=== PATIENT | male | born 1990 | race Caucasian/White ===

== ENCOUNTER 2017-02-27 00:20 | Emergency (ER) | payer OTHER ==
[~2017-02-27] VITALS: Ht 180.3 cm; Wt 88.0 kg
[2017-02-27 00:23] VITALS: BP 131/81; PULSE 111; RESP 16; TEMP 98.8; O2SAT 98
[2017-02-27] MEDS ORDERED: DICL75TA PO (00:35)
[2017-02-27] MEDS ORDERED: CEPH-460 PO (00:35)
[2017-02-27] MEDS ORDERED: CYCL1TAB29 PO (00:35)
[2017-02-27] MEDS ORDERED: CYCLOBENZAPRINE HCL 10 MG TAB PO ONE (00:45)
[2017-02-27] MEDS ORDERED: CEPHALEXIN MONOHYDRATE 500 MG CAP PO ONE (00:45)
[2017-02-27] MEDS ORDERED: NAPROXEN 500 MG TAB PO ONE (00:45)
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
== END 2017-02-27 01:42 | disposition home or self-care (01) ==
LOC: NEPK 00:20
DX: S80.812A Abrasion, left lower leg, initial encounter (principal); T14.8 Other injury of unspecified body region; S61.210A Laceration without foreign body of right index finger without damage to nail, initial encounter; V09.9XXA Pedestrian injured in unspecified transport accident, initial encounter; Y93.55 Activity, bike riding; Y92.410 Unspecified street and highway as the place of occurrence of the external cause; W27.8XXA Contact with other nonpowered hand tool, initial encounter; Y93.H2 Activity, gardening and landscaping; Y99.0 Civilian activity done for income or pay; Z72.0 Tobacco use
CPT/HCPCS: 86403; 87070; 99284

== ENCOUNTER 2018-02-11 20:42 | Emergency (ER) | payer SELFPAY ==
[~2018-02-11 20:42] MED LIST: CEPH-460 PO; CYCL10TA PO; DICL75TA PO
[2018-02-11 20:46] VITALS: BP 146/83; PULSE 75; RESP 20; TEMP 98.7; O2SAT 100
--- NOTE | 2018-02-11 22:43 | PD ---
HPI Chief Complaint: Medical Clearance Time Seen by Provider: 22:33 Travel History International Travel<30 days: No Contact w/Intl Traveler<30days: No Traveled to known affect area: No History of Present Illness HPI 27-year-old male here for evaluation of chest pain and severe sunburn. The patient reports substernal chest pain that is sharp, started today, moderate to severe, worse with movements and inspiration. He denies history of DVT or PE. No history of cardiac disease. No fevers or chills. No hemoptysis. The patient also reports a severe sunburn to his chest, abdomen, thighs, and dorsum of feet. He states that he fell asleep in the sun a couple of days ago. He smokes cigarettes daily, drinks alcohol occasionally, denies illicit drug use. PFSH Past Medical History Immunizations Current: Yes Social History Alcohol Use: Yes Tobacco Use: Yes Substance Use: No Allergies-Medications (Allergen,Severity, Reaction): Coded Allergies: No Known Allergies (Unverified , 02/27/17) Reported Meds & Prescriptions Reported Meds & Active Scripts Active Flexeril (Cyclobenzaprine HCl) 10 Mg Tab 10 Mg PO TID Diclofenac Sodium DR (Diclofenac Sodium) 75 Mg Tabdr 75 Mg PO BID Keflex (Cephalexin) 500 Mg Cap 500 Mg PO Q6H Review of Systems Except as stated in HPI: all other systems reviewed are Neg Physical Exam Narrative GENERAL: Well-developed, well-nourished, awake, alert, comfortable, no apparent distress. SKIN: Focused skin assessment warm/dry. Anterior chest, abdomen, thighs, and feet with diffuse erythema with sharp demarcation lines at the waist as well as thigh where his shorts and, as well as on the dorsum of his feet, no blistering. HEAD: Atraumatic. Normocephalic. EYES: Pupils equal and round. No scleral icterus. No injection or drainage. ENT: Mucous membranes pink and dry. NECK: Trachea midline. No JVD. CARDIOVASCULAR: Regular rate and rhythm. No murmur appreciated. Distal pulses brisk and equal bilaterally. RESPIRATORY: No accessory muscle use. Clear to auscultation. Breath sounds equal bilaterally. GASTROINTESTINAL: Abdomen soft, non-tender, nondistended. MUSCULOSKELETAL: No obvious deformities. No clubbing. No cyanosis. No edema. NEUROLOGICAL: Awake and alert. No obvious cranial nerve deficits. Motor grossly within normal limits. Normal speech. PSYCHIATRIC: Appropriate mood and affect; insight and judgment normal. Data Data Last Documented VS Vital Signs Date Time Temp Pulse Resp B/P (MAP) Pulse Ox O2 Delivery O2 Flow Rate FiO2 02/11/18 20:46 98.7 75 20 146/83 (104) 100 Orders Orders Electrocardiogram (02/11/18 22:39) Ckmb (Isoenzyme) Profile (02/11/18 22:39) Complete Blood Count With Diff (02/11/18 22:39) Comprehensive Metabolic Panel (02/11/18 22:39) D-Dimer (02/11/18 22:39) Magnesium (Mg) (02/11/18 22:39) Prothrombin Time / Inr (Pt) (02/11/18 22:39) Act Partial Throm Time (Ptt) (02/11/18 22:39) Troponin I (02/11/18 22:39) Lipase (02/11/18 22:39) Chest, Single Ap (02/11/18 22:39) Ecg Monitoring (02/11/18 22:39) Bilateral Bp Monitoring (02/11/18 22:39) Iv Access Insert/Monitor (02/11/18 22:39) Oximetry (02/11/18 22:39) Oxygen Administration (02/11/18 22:39) Sodium Chloride 0.9% Flush (Ns Flush) (02/11/18 22:45) Ketorolac Inj (Toradol Inj) (02/11/18 22:45) Sodium Chlor 0.9% 1000 Ml Inj (Ns 1000 M (02/11/18 22:45) CKMB (02/11/18 22:55) CKMB% (02/11/18 22:55) Labs Laboratory Tests Test 02/11/18 22:55 White Blood Count 9.7 TH/MM3 Red Blood Count 4.58 MIL/MM3 Hemoglobin 15.1 GM/DL Hematocrit 44.7 % Mean Corpuscular Volume 97.6 FL Mean Corpuscular Hemoglobin 33.0 PG Mean Corpuscular Hemoglobin Concent 33.8 % Red Cell Distribution Width 13.6 % Platelet Count 210 TH/MM3 Mean Platelet Volume 9.2 FL Neutrophils (%) (Auto) 60.3 % Lymphocytes (%) (Auto) 22.1 % Monocytes (%) (Auto) 11.2 % Eosinophils (%) (Auto) 5.9 % Basophils (%) (Auto) 0.5 % Neutrophils # (Auto) 5.8 TH/MM3 Lymphocytes # (Auto) 2.1 TH/MM3 Monocytes # (Auto) 1.1 TH/MM3 Eosinophils # (Auto) 0.6 TH/MM3 Basophils # (Auto) 0.0 TH/MM3 CBC Comment DIFF FINAL Differential Comment Prothrombin Time 9.9 SEC Prothromb Time International Ratio 1.0 RATIO Activated Partial Thromboplast Time 24.3 SEC D-Dimer Quantitative (PE/DVT) 0.20 MG/L FEU Blood Urea Nitrogen 15 MG/DL Creatinine 1.25 MG/DL Random Glucose 101 MG/DL Total Protein 6.6 GM/DL Albumin 3.6 GM/DL Calcium Level 9.1 MG/DL Magnesium Level 2.1 MG/DL Alkaline Phosphatase 84 U/L Aspartate Amino Transf (AST/SGOT) 12 U/L Alanine Aminotransferase (ALT/SGPT) 13 U/L Total Bilirubin 0.2 MG/DL Sodium Level 142 MEQ/L Potassium Level 4.0 MEQ/L Chloride Level 108 MEQ/L Carbon Dioxide Level 27.7 MEQ/L Anion Gap 6 MEQ/L Estimat Glomerular Filtration Rate 70 ML/MIN Total Creatine Kinase 142 U/L Creatine Kinase MB 1.5 NG/ML Troponin I LESS THAN 0.02 NG/ML Lipase 397 U/L MDM Medical Decision Making Medical Screen Exam Complete: Yes Emergency Medical Condition: Yes Medical Record Reviewed: Yes Interpretation(s) EKG: Sinus, rate 64, normal axis, normal intervals, incomplete RBBB, no acute ischemic abnormality. Differential Diagnosis First-degree sunburn, ACS, pneumothorax, pericarditis, PE, pneumonia, dehydration/metabolic abnormality Narrative Course Vital signs show heart rate 75, blood pressure 146/83, pulse ox 100% on room air , oral, 98.7F. CBC: WBC 9.7, hemoglobin 15.1, hematocrit 44.7, platelets 210. CMP is unremarkable. Cardiac enzymes are negative. Lipase is 397. D-dimer is negative at 0.20. Chest x-ray: No acute disease. Patient was made aware of all findings. He was given a liter of normal saline IV and IV Toradol and is resting comfortably. I do not believe his chest pain is cardiopulmonary in nature. He is here with his significant other and states that they are homeless, but have a place to stay in [facility]. They do not have a place to stay locally. I will see if our cyanide case hardener can [facility] At this point patient is stable for discharge home with outpatient follow-up with a primary care physician this week. He was advised on when to return to the emergency department. He verbalizes understanding and agreement with plan. Diagnosis Primary Impression: First degree sunburn Additional Impression: Atypical chest pain Referrals: [facility] 3 days Primary Care Physician 3 days Additional Instructions: Follow-up with a primary care physician this week. Stay hydrated with plenty of fluids. Return to the emergency department for worsening symptoms or any other concerns. Disposition: 01 DISCHARGE HOME Condition: Stable Dorian Bowser MD Feb 11, 2018 22:43
[2018-02-11] MEDS ORDERED: SODIUM CHLORIDE 0.9% FLUSH 10 ML FLUSH IVF PRN (22:45)
[2018-02-11] MEDS ORDERED: KETOROLAC TROMETHAMINE 30 MG/ML (IVP) VIAL IV PUSH ONE (22:45)
[2018-02-11] MEDS ORDERED: SODIUM CHLOR 0.9% 1000 ML INJ 1,000 ML IV ONE (22:45)
--- NOTE | 2018-02-11 22:55 | RADRPT ---
EXAM DATE/TIME: 02/11/2018 22:46 [place] COMPARISON: No previous studies available for comparison. INDICATIONS : Chest pain. MEDICAL HISTORY : None. SURGICAL HISTORY : None. ENCOUNTER: Initial ACUITY: 2 days PAIN SCORE: 5/10 LOCATION: Bilateral chest FINDINGS: A single view of the chest demonstrates the lungs to be symmetrically aerated without evidence of mas s, infiltrate or effusion. The cardiomediastinal contours are unremarkable. Osseous structures are intact. CONCLUSION: No acute disease. Stu Herbert MD on February 11, 2018 at 22:53 Board Certified Radiologist. This report was verified electronically.
[2018-02-11 23:20] LABS: AUTOMATED NEUTROPHIL # 5.8 TH/MM3 (1.8-7.7); BASOPHIL % 0.5 % (0.0-2.0); EOSINOPHIL # 0.6 TH/MM3 (0-0.4); EOSINOPHIL % 5.9 % (0.0-4.0); HEMATOCRIT 44.7 % (39.0-51.0); HEMOGLOBIN 15.1 GM/DL (13.0-17.0); LYMPH % 22.1 % (9.0-44.0); LYMPHOCYTE # 2.1 TH/MM3 (1.0-4.8); MEAN CELL VOLUME 97.6 FL (80.0-100.0); MEAN CORPUSCULAR HGB CONC 33.8 % (32.0-36.0); MEAN PLATELET VOLUME 9.2 FL (7.0-11.0); MONO % 11.2 % (0.0-8.0); MONOCYTE # 1.1 TH/MM3 (0-0.9); NEUT % 60.3 % (16.0-70.0); PLATELET COUNT 210 TH/MM3 (150-450); RED BLOOD COUNT 4.58 MIL/MM3 (4.50-5.90); RED CELL DISTRIBUTION WIDTH 13.6 % (11.6-17.2); WHITE BLOOD COUNT 9.7 TH/MM3 (4.0-11.0)
[2018-02-11 23:37] LABS: PROTHROMBIN TIME - PATIENT 9.9 SEC (9.8-11.6)
[2018-02-11 23:38] LABS: D-DIMER 0.2 MG/L FEU (0.00-0.50)
[2018-02-11 23:52] LABS: ALBUMIN 3.6 GM/DL (3.4-5.0); AST (GOT) 12 U/L (15-37); BICARBONATE 27.7 MEQ/L (21.0-32.0); BLOOD UREA NITROGEN 15 MG/DL (7-18); CALCIUM 9.1 MG/DL (8.5-10.1); CHLORIDE 108 MEQ/L (98-107); CREATININE 1.25 MG/DL (0.60-1.30); GLOMERULAR FILTRATION RATE 70 ML/MIN (>89); GLUCOSE,RANDOM 101 MG/DL (74-106); MAGNESIUM 2.1 MG/DL (1.5-2.5); SODIUM (NA) 142 MEQ/L (136-145)
[2018-02-11 23:58] LABS: ALKALINE PHOSPHATASE 84 U/L (45-117); ALT (GPT) 13 U/L (12-78); TOTAL BILIRUBIN ADULT 0.2 MG/DL (0.2-1.0); TOTAL PROTEIN 6.6 GM/DL (6.4-8.2); TROPONIN I LESS THAN 0.02 NG/ML (0.02-0.05)
[2018-02-12 01:10] VITALS: BP 138/82
--- NOTE | 2018-02-12 15:33 | EKG ---
Date Performed: 02/11/2018 Time Performed: 23:29:12 PTAGE: 27 years EKG: Sinus rhythm WITH SINUS ARRHYTHMIA INCOMPLETE RIGHT BUNDLE BRANCH BLOCK BORDERLINE ECG NO PREVIOUS TRACING DOCTOR: Everette Jin Interpretating Date/Time 02/12/2018 15:23:29
== END 2018-02-12 01:12 | disposition home or self-care (01) ==
LOC: NEPD 20:42
DX: L55.0 Sunburn of first degree (principal); R07.89 Other chest pain; R94.31 Abnormal electrocardiogram [ECG] [EKG]; Z72.0 Tobacco use; Z59.0 Homelessness
CPT/HCPCS: 71045; 80053; 82550; 82552; 83690; 83735; 84484; 85025; 85379; 85610; 85730; 93005; 96361; 96374; 99285; J1885; J7030

== ENCOUNTER 2018-04-06 10:00 | Emergency (ER) | payer SELFPAY ==
[~2018-04-06] VITALS: Ht 180.3 cm; Wt 96.0 kg
[2018-04-06 10:04] VITALS: BP 116/56; PULSE 75; RESP 17; TEMP 98; O2SAT 100
--- NOTE | 2018-04-06 10:24 | PD ---
HPI Chief Complaint: Pain: Acute or Chronic Time Seen by Provider: 10:20 Travel History International Travel<30 days: No Contact w/Intl Traveler<30days: No Traveled to known affect area: No History of Present Illness HPI 27-year-old male presents emergency department for evaluation right upper extremity edema 1 week. Patient states this came shortly after a workout session. He also reports palpable bumps within the proximal upper extremity. He is uncertain what these are. He has no history DVT or PE. She has no significant pain. He has had no recent illnesses, fever, or chills. He denies any IV drug use. He has no other symptoms to report. PFS Past Medical History Medical History: Denies Significant Hx Immunizations Current: Yes Social History Alcohol Use: Yes Tobacco Use: Yes Substance Use: No Allergies-Medications (Allergen,Severity, Reaction): Coded Allergies: No Known Allergies (Unverified Adverse Reaction, Unknown, 04/06/18) Reported Meds & Prescriptions Reported Meds & Active Scripts Active Flexeril (Cyclobenzaprine HCl) 10 Mg Tab 10 Mg PO TID Diclofenac Sodium DR (Diclofenac Sodium) 75 Mg Tabdr 75 Mg PO BID Keflex (Cephalexin) 500 Mg Cap 500 Mg PO Q6H Review of Systems Except as stated in HPI: all other systems reviewed are Neg Physical Exam Narrative GENERAL: Well-nourished, well-developed male patient in no acute distress SKIN: Focused skin assessment warm/dry. HEAD: Normocephalic. EYES: No scleral icterus. No injection or drainage. NECK: Supple, trachea midline. No JVD or lymphadenopathy. CARDIOVASCULAR: Regular rate and rhythm without murmurs, gallops, or rubs. RESPIRATORY: Breath sounds equal bilaterally. No accessory muscle use. MUSCULOSKELETAL: No cyanosis. Moderate edema of the right upper extremity. Distal pulses are palpable. Cap refill within normal limits. No obvious deformity. There is palpable adenopathy in the proximal right upper extremity. BACK: Nontender without obvious deformity. No CVA tenderness. Data Data Last Documented VS Vital Signs Date Time Temp Pulse Resp B/P (MAP) Pulse Ox O2 Delivery O2 Flow Rate FiO2 04/06/18 10:42 16 04/06/18 10:04 98.0 17 116/56 (76) 100 Orders Orders Us Arm Venous Doppler (04/06/18 ) Ed Discharge Order (04/06/18 12:08) [facility] Medical Decision Making Medical Screen Exam Complete: Yes Emergency Medical Condition: Yes Medical Record Reviewed: Yes Differential Diagnosis DVT versus cellulitis versus muscle tear Narrative Course 27-year-old male presents emergency department for evaluation of right upper extremity edema 1 week. Patient appears without distress. Vital signs are stable. Ultrasound is complete. Last Impressions Upper Extremity Ultrasound 04/06/18 0000 Signed Impressions: CONCLUSION: 1. There are 3 abnormal lymph nodes in the area of clinical concern with mild wall thickening of the basilic vein in this region but no definite evidence for thrombus. A phlebitis may have this appearance. The adenopathy is nonspecific. 2. No evidence for DVT. Patient Findings are discussed with my attending physician. Patient will be discharged home, instructed to take aspirin and to have repeat ultrasound in 1 week if symptoms persist. He agrees to return immediately with any acute worsening symptoms. Diagnosis Primary Impression: Phlebitis of right upper extremity Referrals: Primary Care Physician Patient Instructions: General Instructions, Phlebitis (ED) Additional Instructions: Warm compresses to the affected area Take ONE 325mg aspirin by mouth daily Repeat ultrasound in 1 week Return immediately with acute worsening symptoms Med/Other Pt SpecificInfo: No Change to Meds Disposition: 01 DISCHARGE HOME Condition: Stable Adelina Jimenez Apr 06, 2018 10:24
--- NOTE | 2018-04-06 12:01 | RADRPT ---
EXAM DATE: 04/06/2018 11:53 AM EDT AGE/SEX: 27 years / Male INDICATIONS: Right arm swelling. CLINICAL DATA: This is the patient's initial encounter. Patient reports that signs and symptoms have been present for 1 week and indicates a pain score of 5/10. MEDICAL/SURGICAL HISTORY: . Right arm pain and swelling. . COMPARISON: No prior exams available for comparison. FINDINGS: There is spontaneous flow documented in the brachial, basilic, cephalic, axillary, and subclavian vei ns. The vessels are compressible and augmentation response is documented. No filling defects are se en. The flow is phasic with respiration. Direction of flow in the jugular vein is caudal. Just above the elbow at the level of the basilic vein are 3 hypoechoic masses adjacent to the basilic vein. One measures 9.7 x 19.1 x 10 mm with blood flow, the other clearly has an echogenic notch bloo d flow and measures 7.6 x 8.5 x 7.6 mm, and a 1.7 x 1.5 x 1.6 mm hypoechoic mass with echogenic notch and blood flow. These are felt to represent abnormal lymph nodes with cortical thickening. There is also mild wall thickening of the basilic vein in this region but no definite intraluminal thrombus. CONCLUSION: 1. There are 3 abnormal lymph nodes in the area of clinical concern with mild wall thickening of the basilic vein in this region but no definite evidence for thrombus. A phlebitis may have this appeara nce. The adenopathy is nonspecific. 2. No evidence for DVT. Electronically signed by: Bran Augustine MD 04/06/2018 12:00 PM EDT
== END 2018-04-06 12:47 | disposition home or self-care (01) ==
LOC: NEPD 10:00
DX: I80.8 Phlebitis and thrombophlebitis of other sites (principal); Z72.0 Tobacco use; Z79.899 Other long term (current) drug therapy
CPT/HCPCS: 93971